=== PATIENT | female | born 1950 | race Caucasian/White ===

== ENCOUNTER 2017-01-05 09:38 | Emergency (ER) | payer MEDICARE ==
[2017-01-05 10:06] LABS: BASOPHILS 0.3 % (0-2); EOSINOPHILS 2.3 % (0-7); HEMOGLOBIN 11.8 g/dL (12-16); IMMATURE GRANULOCYTES 0.2 % (0-5); LYMPHOCYTES 21.7 % (15-50); MCH 25.4 pg (26.0-34.0); MCHC 31.9 g/dL (31.0-37.0); MCV 79.6 fL (80.0-100.0); MEAN PLATELET VOLUME 11.1 fL (7.4-10.4); MONOCYTES 6.8 % (2-11); NEUTROPHILS 68.7 % (40-80); PLATELET COUNT 251 10x3/uL (130-400); RBC 4.65 10x6/uL (4.00-5.40); RDW 16.9 % (11.5-14.5); WBC 8.8 10x3/uL (4.8-10.8)
[2017-01-05 10:48] LABS: ALBUMIN 3.1 g/dL (3.4-5.0); ALKALINE PHOSPHATASE 84 U/L (46-116); ALT (SGPT) 30 U/L (10-68); BILIRUBIN - TOTAL 0.22 mg/dL (0.2-1.3); CALC OSMOLALITY 280 mosm/kg (275-300); CALCIUM 9.1 mg/dL (8.5-10.1); CARBON DIOXIDE 27.8 mmol/L (21.0-32.0); CHLORIDE - SERUM 103 mmol/L (98-107); CREATININE - SERUM 1.1 mg/dL (0.6-1.3); GLUCOSE 83 mg/dL (74-106); POTASSIUM - SERUM 4.1 mmol/L (3.5-5.1); PROTEIN - SERUM 7.5 g/dL (6.4-8.2); SODIUM 137 mmol/L (136-145); UREA NITROGEN 35 mg/dL (7-18); eGFR NON AFRICAN AMERICAN 53 mL/min (90-120)
[2017-01-05 11:01] LABS: CHOL - HDL RATIO 3.8 ratio (2.3-4.1); CHOLESTEROL, TOTAL 175 mg/dL (0-200); CKMB 1.1 U/L (0.0-3.6); CREATINE KINASE 77 UL (21-215); HDL CHOLESTEROL 46 mg/dL (32-96); LDL CHOLESTEROL 96 mg/dL (0-100); LDL-HDL RATIO 2.1 ratio (1.5-3.5); MAGNESIUM - SERUM 1.9 mg/dL (1.8-2.4); PRO BNP 82 pg/mL (0-125); TRIGLYCERIDE 165 mg/dL (30-200)
[2017-01-05 11:19] LABS: TROPONIN-I < 0.017 ng/mL (0.000-0.060)
--- NOTE | 2017-01-08 16:42 | CN ---
PATIENT NAME:GABRIELLE PEARCE MEDICAL RECORD: [id number] : 54 LOCATION:.ER ADMIT DATE: ACCOUNT: [id number] CONSULTING PHYSICIAN: GARCIA GREENBERG MD REFERRING PHYSICIAN: FRANKY CRABTREE MD DATE OF CONSULTATION: 01/05/2017 DIAGNOSES: 1. Chest pain. 2. Hypertension. 3. Hyperlipidemia. 4. Family history of coronary artery disease. HISTORY OF PRESENT ILLNESS: Mrs. Pearce has no previous cardiac history. She had a sudden onset of chest pain while she was driving, like something hit her chest. She then had some dull ache after this along with the headache. She is pain free at this time. Her EKG is normal. Troponin is normal. She does have the risk factors as outlined above. She has not had a risk stratification. PHYSICAL EXAMINATION: GENERAL APPEARANCE: Well-nourished, well-developed, appears stated age. Level of distress, comfortable. PSYCHIATRIC: Mental status, alert, normal affect. Orientation, oriented to time, place and person. EYES: Lids and conjunctiva, noninjected. No discharge, no pallor. ENT: Lips, teeth, gums, normal dentition. Oropharynx, no cyanosis, no pallor. NECK: Carotid arteries, bilateral normal upstroke, no bruits, no thrills. JUGULAR VEINS: No jugular venous pressure or distention. CERVICAL LYMPH NODES: Nontender, nonenlarged. THYROID: Not enlarged. Nontender. No nodules. LUNGS: Respiratory effort, unlabored. CHEST: Normal curvature. No thoracic deformity. No chest wall tenderness. Percussion, resonant. Auscultation, clear. No wheezes, no rales, no rhonchi. CARDIOVASCULAR: Precordial exam, nondisplaced. No heaves or pericardial thrills. Rate and rhythm, regular. Heart sounds, normal S1, normal S2. No S3, no gallop, no rub. Systolic murmur, not heard. Diastolic murmur, not heard. EXTREMITIES: No cyanosis, no edema. Peripheral pulses, full and equal in all extremities, except as noted. No bruits appreciated. ABDOMEN: Soft, nondistended. Normal aorta. No bruit. Nontender. No masses. Liver, nontender, no hepatomegaly. Spleen, nontender, no splenomegaly. MUSCULOSKELETAL: No joint tenderness. No joint swelling. No erythema. NEUROLOGICAL: Normal gait, normal strength, normal tone. SKIN: Warm and dry. REVIEW OF SYSTEMS: The patient reports easy bruising but reports no swollen glands. The patient reports no fever, no night sweats, no significant weight gain, no significant weight loss. No significant exercise tolerance. The patient reports no dry eyes, no irritation, no vision change. Patient reports no difficulty hearing and no ear pain. Patient reports no frequent nose bleeds or nose and sinus problems. Patient reports on arm pain on exertion. No shortness of breath while lying down. No history of heart murmur. Patient reports no cough, no wheezing or coughing up blood. Patient reports no abdominal pain, no vomiting. Normal appetite. No diarrhea and not vomiting blood. No nausea and no constipation. Patient reports no incontinence. No difficulty urinating. No hematuria. No increased frequency. Patient reports CONSULT REPORT [id number] GABRIELLE PEARCE no muscle aches. No weakness, no arthralgias, no back pain. No swelling of the extremities. Patient reports no abnormal mole, no jaundice, no rashes. Reports no loss of consciousness. No weakness and no numbness. No seizures, dizziness, or headaches. The patient reports no depression, no sleep disturbance, feeling safe in a relationship and no alcohol abuse. Patient reports on fatigue. Reports no runny nose or sinus pressure. No itching, no hives, and no frequent sneezing. OVERALL IMPRESSION: Chest pain with some very typical components and many atypical components. We will risk stratify with stress testing Cardiolite imaging as an outpatient. TRANSINT:[id number] Voice Confirmation ID: [id number] DOCUMENT ID: [id number] GARCIA GREENBERG MD at 1642 CC: [id number] DICTATION DATE: 01/05/17 1159 INSTALLER METAL FLOORING: 01/05/17 1306 DEP ER 01/05/17 [facility] [address] [place] [address]
[2017-02-13] MEDS ORDERED: OMEPRAZOLE20 M1 PO (08:10)
[2017-02-13] MEDS ORDERED: PLAVIX75 MG PO (08:10)
[2017-02-13] MEDS ORDERED: NEURONTIN 300300 MG PO (08:10)
[2017-02-13] MEDS ORDERED: ULTRAM50 MG PO (08:11)
[2017-02-13] MEDS ORDERED: NITROQUICK0.4 MG SL (08:11)
[2017-02-13] MEDS ORDERED: HYDROCHLOROTHIA25 MG PO (08:12)
[2017-02-13] MEDS ORDERED: VOLTAREN75 MG PO (08:12)
[2017-02-13] MEDS ORDERED: VASOTEC20 MG PO (08:12)
[2017-02-13] MEDS ORDERED: VITAMIN B COMPL1 TAB PO (08:13)
[2017-02-13] MEDS ORDERED: BAYER CHEWABLE81 MG PO (08:13)
[2017-02-13] MEDS ORDERED: FLINTSTONE1 TAB.CHEW PO (08:13)
[2017-02-13] MEDS ORDERED: FISH OIL 1,2001 CAP PO (08:13)
[2017-02-13 08:19] VITALS: BMI 43.1
== END 2017-01-05 13:32 | disposition home or self-care (01) ==
LOC: D.ER 09:38
PROVIDERS: Emergency Medicine
DX: R07.9 Chest pain, unspecified (principal); I10 Essential (primary) hypertension; D64.9 Anemia, unspecified

== ENCOUNTER → 2017-02-13 07:53 | Outpatient (CLI) | payer MEDICARE ==
[~2017-02-13] VITALS: Ht 160 cm; Wt 110.5 kg
--- NOTE | ~2017-02-13 | HEMODYNAMI ---
PATIENT:GABRIELLE HARRIS MEDICAL RECORD: [id number] : 54 LOCATION:DJavadCAT ADMISSION DATE: 02/13/17 Generatedon:02/13/201710:03 Patient name: GABRIELLE HARRIS Patient #: [id number] SSN: : 1950 Date of study: 02/13/2017 Page: Of Hemodynamic Procedure Report Patient Data Patient Demographics Procedure consent was obtained First Name: GABRIELLE Gender: Female Last Name: STEVEN : 1950 [facility] Initial: TIM Age: 66 year(s) Patient #: [id number] Race: Unknown Additional ID: [id number] Contact details Address: [address] [place] [address] [place] [place] [facility] Zip code: [address] Past Medical History Allergies: No known allergies Admission Admission Data Admission Date: 02/13/2017 Admission Time: 7:53 Procedure Procedure Types Cath Procedure Diagnostic Procedure LHC LHC w/Coronaries PCI Procedure Coronary Stent Coronary Stent Initial Miscellaneous Procedures Moderate Sedation up to 30 minutes Procedure Description Procedure Date Procedure Date: 02/13/2017 Procedure Start Time: 9:47 Procedure End Time: 10:03 Procedure Staff Name Function Rocky Carrillo MD Performing Physician Sylvia Walters RT Monitor Dipika Rodriguez RT Scrub Lionel Lindo RN Nurse Dom Ruiz RN Senior Oracle Database Administrator Procedure Data Cath Procedure Fluoroscopy Diagnostic fluoroscopy Total fluoroscopy Time: 3.1 time: 3.1 min min Diagnostic fluoroscopy Total fluoroscopy dose: 460 dose: 460 mGy mGy Contrast Material Contrast Material Type Amount (ml) Isovue 300 60 Entry Location Entry Primary Successful Side Size Upsize Upsize Entry Closure Li ccessful Closure Location (Fr) 1 (Fr) 2 (Fr) Remarks Device Remarks Radial Right 6 Fr Mechanical artery Short Compression Estimated blood loss: 10 ml Diagnostic catheters Device Type Used For End Catheter Placement DIAGNOSTIC Needham 110cm 5 LV Angiography Fr catheter ([id number]) DIAGNOSTIC [place]ham 110cm 5 Left Coronary Fr catheter ([id number]) Angiography DIAGNOSTIC [place] 110cm 5 Right Coronary Fr catheter (058010) Angiography Procedure Complications No complications Procedure Medications Medication Administration Route Dosage 0.9% NaCl I.V. 100 ml/hr Oxygen NC 2 l/min Heparin Flush Bag added to field 2 bags (1000units/500ml NS) Radial Cocktail added to field 1 syringe (Verapomil 2mg/Nitro 400mcg/Heparin 1500units) Versed I.V. 1 mg Fentanyl I.V. 50 mcg Fentanyl I.V. 25 mcg Radial Cocktail I.A. 1 syringe (Verapomil 2mg/Nitro 400mcg/Heparin 1500units) Versed I.V. 0.5 mg Heparin Bolus I.V. 4000 units Versed I.V. 0.5 mg Fentanyl I.V. 25 mcg Hemodynamics Rest Heart Rate: 75 (bpm) Snapshots Pre Cath Intra NCS Post Cath Vital Signs Time Heart Resp SPO2 etCO2 NIBP (mmHg) Rhythm Pain Sedation Rate (ipm) (%) (mmHg) Status Level (bpm) 9:42:57 76 26 100 0 147/67(115) NSR 0 (11) 10(A) , No pain 9:47:50 75 20 98 40.1 128/59(92) NSR 0 (11) 10(A) , No pain 9:52:43 82 16 96 42.4 106/50(79) NSR 0 (11) 10(A) , No pain 9:57:32 82 19 96 36.3 106/56(87) NSR 0 (11) 10(A) , No pain 10:02:23 83 7 98 42.4 112/53(91) NSR 0 (11) 10(A) , No pain Medications Time Medication Route Dose Verified Delivered Reason Note s Effectiveness by by 9:40:49 0.9% NaCl I.V. 100 Lionel Lionel Per physician ml/hr Belgica Lindo RN RN 9:41:01 Oxygen NC 2 l/min Lionel Lionel Per physician Belgica Lindo RN RN 9:41:17 Heparin Flush added 2 bags Lionel Lionel used for Bag to Belgica Lindo procedure (1000units/500ml field RN RN NS) 9:41:42 Radial Cocktail added 1 Lionel Lionel for (Verapomil to syringe Belgica Plasenciaigan vasodilation 2mg/Nitro field RN RN 400mcg/Heparin 1500units) 9:46:43 Versed I.V. 1 mg Lionel Lionel for sedation Belgica Lindo RN RN 9:46:54 Fentanyl I.V. 50 mcg Lionel Lionel for sedation Belgica Lindo RN RN 9:49:37 Fentanyl I.V. 25 mcg Lionel Lionel for sedation Belgica Lindo RN RN 9:49:49 Radial Cocktail I.A. 1 Lionel Rocky for (Verapomil syringe Belgica thornton 2mg/Nitro RN 400mcg/Heparin 1500units) 9:50:02 Versed I.V. 0.5 mg Lionel Lionel for sedation Belgica Lindo RN RN 9:53:45 Heparin Bolus I.V. 4000 Lionel Lionel for units Belgica Lindo anticoagulation RN RN 10:00:38 Versed I.V. 0.5 mg Lionel Lionel for sedation Belgica Lindo RN RN 10:00:44 Fentanyl I.V. 25 mcg Lionel Lionel for sedation Belgica Lindo RN division chief Log Time Note 9:28:33 Dom Ruiz RN sent for patient. Start room use. 9:28:34 Time tracking: Regular hours 9:28:40 Plan of Care:Hemodynamics will remain stable., Cardiac rhythm will remain stable., Comfort level will be maintained., Respiratory function will remain adequate., Patient/ family verbilizes understanding of procedure., Procedure tolerated without complication., Recovers from procedure without complications.. 9:30:20 Patient received from Pre/Post Procedure Room to CCL 1 Alert and oriented. Tansferred to table in Supine position. 9:30:21 Warm blankets applied, and suman hugger turned on for patient comfort. 9:30:22 Correct patient and procedure confirmed by team. 9:30:23 Signed procedure consent form obtained from patient. 9:30:24 ECG and BP/O2 sat monitors applied to patient. 9:30:26 Full Disclosure recording started 9:40:49 0.9% NaCl 100 ml/hr I.V. was administered by Lionel Lindo RN; Per physician; 9:41:01 Oxygen 2 l/min NC was administered by Lionel Lindo RN; Per physician; 9:41:17 Heparin Flush Bag (1000units/500ml NS) 2 bags added to field was administered by Lionel Lindo RN; used for procedure; 9:41:42 Radial Cocktail (Verapomil 2mg/Nitro 400mcg/Heparin 1500units) 1 syringe added to field was administered by Lionel Lindo RN; for vasodilation; 9:41:46 Vital chart was started 9:42:30 Rhythm: sinus rhythm 9:42:40 H&P Date Dictated: 02/13/2017 Within 30 days and on chart., New H&P dictated by physician.. 9:42:48 Pre-procedure instructions explained to patient. 9:42:48 Pre-op teaching completed and patient verbalized understanding. 9:42:49 Family in waiting room. 9:42:53 Patient NPO since Midnight. 9:43:00 Patient allergic to No known allergies 9:43:02 Is the patient allergic to Iodine/contrast media? No. 9:43:06 Is patient on blood thinner?Yes 9:43:09 ACC The patient was administered the following blood thiners within the last 24 hours: ACCAspirin, ACCPlavix 9:43:11 Patient diabetic? No. 9:43:14 Previous problem with sedation/anesthesia? No ? 9:43:15 Snore? Yes 9:43:16 Sleep apnea? No 9:43:18 Deviated septum? No 9:43:18 Opens mouth fully? Yes 9:43:19 Sticks out tongue? Yes 9:43:21 Airway obstruction? No ? 9:43:23 Dentures? No ? 9:43:25 Pre procedure: right dorsailis pedis pulse 2+ Normal; easily identifiable; not easily obliterated 9:43:28 Modified Jorge's test Ulnar < 7 seconds 9:43:30 Patient pain scale 0/10 ?. 9:43:33 IV patent on arrival in left hand with 0.9% NaCl at O. 9:43:36 Lab results completed and on chart. 9:43:39 Right Radial & Right Groin area was prepped with chlora-prep and draped in sterile fashion 9:43:40 Alarms reviewed by R. N. 9:43:40 Sharps counted by scrub and verified by R.N. 9:43:41 Final Timeout: patient, procedure, and site verified with staff and physician. All members of the team are in agreement. 9:43:45 Right Radial site verified by team. 9:43:48 Physical assessment completed. ASA score P 2 - A patient with mild systemic disease as per Rocky Carrillo MD. 9:43:53 Sedation plan: IV Moderate Sedation Medication:Versed, Fentanyl 9:43:58 Use device set Radial Dx 9:43:59 ACIST Syringe (05370) opened to sterile field. 9:44:00 Medline Cath Pack ([id number]) opened to sterile field. 9:44:00 Bag Decanter (2002S) opened to sterile field. 9:44:01 SHEATH 6FR Slender ([id number]) opened to sterile field. 9:44:01 DIAGNOSTIC WIRE .035 260cm J wire (230074) opened to sterile field. 9:44:02 ACIST Hand Control (91703) opened to sterile field. 9:44:03 ACIST Manifold (74724) opened to sterile field. 9:44:04 Tegaderm 4 x 4 (1626W) opened to sterile field. 9:44:05 MBrace Wrist Support ([id number]) opened to sterile field. 9:46:14 Zero performed for pressure channel P1 9:46:17 Zero performed for pressure channel P1 9:46:20 Zero performed for pressure channel P1 9:46:23 Zero performed for pressure channel P1 9:46:26 Zero performed for pressure channel P1 9:46:43 Versed 1 mg I.V. was administered by Lionel Lindo RN; for sedation; 9:46:54 Fentanyl 50 mcg I.V. was administered by Lionel Lindo RN; for sedation; 9:46:57 Zero performed for pressure channel P1 9:47:04 Procedure started. 9:47:08 Local anesthetic to right radial artery with Lidocaine 2% by Rocky Carrillo MD.INITIAL ACCESS ONLY 9:47:33 A 6 Fr Short sheath was inserted into the Right Radial artery 9:47:35 Baseline sample Acquired. 9:49:37 Fentanyl 25 mcg I.V. was administered by Lionel Lindo RN; for sedation; 9:49:49 Radial Cocktail (Verapomil 2mg/Nitro 400mcg/Heparin 1500units) 1 syringe I.A. was administered by Rocky Carrillo MD; for vasodilation; 9:50:02 Versed 0.5 mg I.V. was administered by Lionel Lindo RN; for sedation; 9:50:13 A DIAGNOSTIC Needham 110cm 5 Fr catheter (065000) was advanced over the wire and used for LV Angiography. 9:50:15 LV gram done using GUTIERREZ 9:50:22 EF : 55 % 9:50:24 Injector settings: Ml/sec: 5, Volume: 15, 9:50:32 A DIAGNOSTIC [place]ham 110cm 5 Fr catheter (773952) was advanced over the wire and used for Left Coronary Angiography. 9:50:39 Use device set TAU PCI 9:50:42 INFLATOR Merit BasixCompak (AW8100) opened to sterile field. 9:51:09 A DIAGNOSTIC [place]ham 110cm 5 Fr catheter (283072) was advanced over the wire and used for Right Coronary Angiography. 9:51:15 Catheter removed. 9:51:18 GUIDE 6FR XBLAD 3.5 catheter ([id number]) opened to sterile field. 9:51:23 CHOICE PT Extra Support 182cm wire ([id number]) opened to sterile field. 9:52:56 CHOICE PT Extra Support 182cm wire ([id number]) opened to sterile field. 9:53:44 6 Fr XBLAD 3.5 guide catheter was inserted over the wire 9:53:45 Heparin Bolus 4000 units I.V. was administered by Lionel Lindo RN; for anticoagulation; 9:53:49 Choice PT ES wire advanced. 9:56:11 Inflation Number: 1 A INTEGRITY RX 3.0 x 15 stent ([id number]) was prepped and advanced across the Mid LAD. The stent was deployed at 17 DELL for 0:08 (min:sec). 9:56:26 Stent catheter was removed intact over wire. 9:58:36 Inflation Number: 2 A INTEGRITY RX 3.5 x 18 stent ([id number]) was prepped and advanced across the Mid LAD. The stent was deployed at 15 DELL for 0:08 (min:sec). 9:58:43 Stent catheter was removed intact over wire. 9:58:59 Wire removed. 9:59:00 Guide catheter removed. 9:59:19 Sheath removed intact; hemostasis achieved with Mechanical Compression to the Right Radial artery. 9:59:22 Procedure ended.(Physican Out) 9:59:31 Fluoroscopy time 03.10 minutes. 9:59:37 Fluoroscopy dose: 460 mGy 9:59:37 Flurop Dose total: 460 9:59:41 Contrast amount:Isovue 300 60ml. 9:59:42 TR BAND Large ([id number]) opened to sterile field. 9:59:45 Sharps counted by scrub and verified by R.N. 9:59:48 TR band inflated with 12cc of air. 9:59:49 Insertion/operative site no bleeding no hematoma. 10:00:00 Post right radial artery:stable, soft, clean and dry 10:00:02 Post Procedure Pulses reassessed and unchanged 10:00:04 Post-procedure physical assessment completed. ASA score P 2 - A patient with mild systemic disease as per Rocky Carrillo MD. 10:00:06 Post procedure rhythm: unchanged. 10:00:09 Estimated blood loss: 10 ml 10:00:10 Post procedure instruction explained to patient.Patient verbalizes understanding. 10:00:10 Patient needs reinforcement of post procedure teaching. 10:00:25 Procedure type changed to Cath procedure, Diagnostic procedure, LHC, LHC w/Coronaries, PCI procedure, Coronary Stent, Coronary Stent Initial, Miscellaneous Procedures, Moderate Sedation up to 30 minutes 10:00:30 Procedure Complication : No complications 10:00:33 See physician's report for complete and final results. 10:00:38 Versed 0.5 mg I.V. was administered by Lionel Lindo RN; for sedation; 10:00:44 Fentanyl 25 mcg I.V. was administered by Lionel Lindo RN; for sedation; 10:03:10 Procedure and supply charges have been captured, reviewed, submitted and are correct. 10:03:10 Vital chart was stopped 10:03:12 Report given to Pre/Post Procedure Room. 10:03:15 Patient transfered to Pre/Post Procedure Room with Stretcher. 10:03:17 Procedure ended. 10:03:17 Full Disclosure recording stopped ::25 End room use (Document Last) Intervention Summary Intervention Notes Time ActionType Lesion and Equipment Action# Pressure Duration Attributes Used 9:56:11 Place stent Mid LAD INTEGRITY RX 1 17 00:08 3.0 x 15 stent ([id number]) 9:58:36 Place stent Mid LAD INTEGRITY RX 2 15 00:08 3.5 x 18 stent ([id number]) Device Usage Item Name Manufacture Quantity Catalog Number Hospital Part Current Mini mal Lot# / Charge Number Stock Stock Serial# Code ACIST Acist 1 28204 026076 316423 [id number] 20 Syringe Medical (81168) Systems Inc Medline Cath Cardinal 1 [id number] 254177 70966 943114 5 Pack Health ([id number]) Bag Decanter Microtek 1 2001S 714342 75755 540151 5 (2001S) Medical Inc. SHEATH 6FR Terumo 1 [id number] 842740 466250 626652 40 Slender ([id number]) DIAGNOSTIC [facility] 1 092344 515920 495159 949963 30 WIRE .035 260cm J wire (618176) ACIST Hand Acist 1 40991 623421 568394 969349 5 Control Medical (95626) Systems Inc ACIST Acist 1 49976 025882 317858 016829 5 Manifold Medical (94209) Systems Inc Tegaderm 4 x 3M 1 1626W 747028 269807 693074 5 4 (1626W) MBrace Wrist Advanced 1 140-0250-00 487761 05045 522107 5 Support Vascular ([id number]) Dynamics DIAGNOSTIC Terumo 1 40-5013 071252 192650 159543 5 Needham 110cm 5 Fr catheter (573354) INFLATOR [facility] 1 PH2535 021679 965059 967614 15 [facility] Medical BasixCompak (KX0099) GUIDE 6FR Cardinal 1 [id number] 732835 793032 070999 10 XBLAD 3.5 Health catheter (36586798) CHOICE PT [place] 2 [id number] 458997 866142 011388 5 Extra Scientific Support 182cm wire (9242769T2) INTEGRITY RX Medtronic 1 [id number] 492190 634825 237097 5 [id number] 3.0 x 15 stent ([id number]) INTEGRITY RX Medtronic 1 [id number] 655682 178421 497452 5 [id number] 3.5 x 18 stent ([id number]) TR BAND Terumo 1 [id number] 779013 498171 523613 40 Large ([id number]) Signature Audit [place] Stage Time Signature Unsigned Intra-Procedure 02/13/2017 Sylvia 10:03:33 AM Counts RT(R) Signatures Monitor : Sylvia Signature : Counts RT Date : Time : [address] [place] [address]
[~2017-02-13 07:53] MED LIST: BAYER CHEWABLE81 MG PO; FISH OIL 1,2001 CAP PO; FLINTSTONE1 TAB.CHEW PO; HYDROCHLOROTHIA25 MG PO; NEURONTIN 300300 MG PO; NITROQUICK0.4 MG SL; OMEPRAZOLE20 M1 PO; PLAVIX75 MG PO; ULTRAM50 MG PO; VASOTEC20 MG PO; VITAMIN B COMPL1 TAB PO; VOLTAREN75 MG PO
[2017-02-13 08:19] VITALS: BP 153/72; Ht 160 cm; Wt 110.5 kg
[2017-02-13 08:52] LABS: BASOPHILS 0.3 % (0-2); EOSINOPHILS 2.7 % (0-7); HEMATOCRIT 36.4 % (36.0-48.0); HEMOGLOBIN 11.6 g/dL (12-16); IMMATURE GRANULOCYTES 0.3 % (0-5); LYMPHOCYTES 29.4 % (15-50); MCH 25.2 pg (26.0-34.0); MCHC 31.9 g/dL (31.0-37.0); MCV 79.1 fL (80.0-100.0); MEAN PLATELET VOLUME 11.1 fL (7.4-10.4); MONOCYTES 6.6 % (2-11); NEUTROPHILS 60.7 % (40-80); PLATELET COUNT 253 10x3/uL (130-400); RDW 16.6 % (11.5-14.5); WBC 9.7 10x3/uL (4.8-10.8)
[2017-02-13 09:00] LABS: ANION GAP 12.1 mmol/L (8-16); CALCIUM 8.9 mg/dL (8.5-10.1); POTASSIUM - SERUM 4.1 mmol/L (3.5-5.1)
--- NOTE | 2017-02-13 10:33 | NUR ---
1030 HOB ELEVATED TO 30DEGREES, 2L NC REMOVED NOW THAT AWAKE. 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 NO C/O CHEST PAIN. PULSES PALP X 4. R WRIST TR BAND C/D/I W NO HEMATOMA OR BLEEDING.
--- NOTE | 2017-02-13 10:50 | NUR ---
HOB ELEVATED. EATING TURKEY SANDWICH AND SIPPING WATER WITH NO C/O NAUSEA. AT SIDE. R WRIST C/D/I.
--- NOTE | 2017-02-13 12:00 | NUR ---
SITTING WITH HOB UP 30 DEGREES TALKING TO FAMILY AT BEDSIDE. VSS WITH NO DISTRESS NOTED. TR BAND TO R/WRIST CDI NO BLEEDING NO HEMATOMA NOTED
--- NOTE | 2017-02-13 12:38 | NUR ---
VOICED NO NEEDS AT THIS TIME TR BAND TO R/WRIST CDI VSS AND FAMILY AT SIDE
--- NOTE | 2017-02-13 13:12 | NUR ---
2 CC AIR REMOVED FROM TR BAND WITH NO BLEEDING NO HEMATOMA NOTED
--- NOTE | 2017-02-13 13:35 | NUR ---
4 CC AIR REMOVED FROM TR BAND WITH NO BLEEDING NO HEMATOMA NOTED. PIV REMOVED WITH DRESSING APPLIED.
--- NOTE | 2017-02-13 13:57 | NUR ---
TR BAND REMOVED WITH DRESSING APPLIED. VERBAL AND WRITTEN DISCHARGE GONE OVER WITH PATIENT AND FAMILY. VSS WITH CHEST PAIN DENIED NO DISTRESS OR COMPLAINTS PATIENT LEFT VIA WC TO PARKING FOR TRANSPORT HOME
--- NOTE | 2017-02-19 12:15 | OP ---
PATIENT NAME: GABRIELLE HARRIS MEDICAL RECORD: [id number] :54 LOCATION:D.CAT ADMISSION DATE: SURGEON: GARCIA GREENBERG MD DATE OF OPERATION: 02/13/2017 PROCEDURES: 1. PTCA stent LAD. 2. Left heart catheterization. 3. Selective coronary angiography. 4. Left ventriculogram. INDICATION: Angina and coronary artery disease. PROCEDURE IN DETAIL: After informed consent was obtained and after a detailed explanation of the risks, benefits as well as alternative therapies, the patient elected to proceed with angiogram and angioplasty. The right radial area was prepped and draped in normal sterile fashion. The right radial artery was cannulated via modified Seldinger technique with placement of 6-[place]agu[place] sheath. All catheters exchanged through this sheath. FINDINGS: Left ventriculogram was performed in the standard 30-degree GUTIERREZ view reveals good cardiac wall motion throughout all segments. Overall ejection fraction estimated at 55%. SELECTIVE CORONARY ANGIOGRAPHY: 1. Left main has no significant angiographic disease. 2. Left anterior descending has 2 areas greater than 70% stenosis, correlates with the perfusion defect on nuclear stress test. 3. Left circumflex shows moderate irregularities, but no flow-limiting stenosis. 4. Right coronary artery has moderate irregularities, but no flow-limiting stenosis. PTCA STENT OF THE LAD: The stents used were a 3.0 x 15 and a 3.5 x 18 both Integrity stents. Result was 0% residual stenosis. OVERALL IMPRESSION: Successful percutaneous transluminal coronary angioplasty stent of the left anterior descending going from greater than 70% initial stenosis to 0% residual stenosis. TRANSINT:[id number] Voice Confirmation ID: [id number] DOCUMENT ID: [id number] GARCIA GREENBERG MD at 1215 CC: [id number] DICTATION DATE: 02/13/17 1007 [place]: 02/13/17 1301 DEP CLI 02/13/17 [place] [id number]
--- NOTE | 2017-02-19 12:15 | HP ---
PATIENT: GABRIELLE PEARCE MEDICAL RECORD: [id number] ACCOUNT: [id number] LOCATION:[facility] : 54 ADMISSION DATE: 02/13/17 HISTORY AND PHYSICAL EXAMINATION ADMITTING DIAGNOSES: 1. Angina. 2. Hypertension. 3. Hyperlipidemia. 4. Abnormal nuclear stress test. HISTORY OF PRESENT ILLNESS: Ms. Pearce presents with anginal symptomatology, found to have an abnormal nuclear stress test suggestive of multivessel disease, now brought for cardiac catheterization. PHYSICAL EXAMINATION: GENERAL APPEARANCE: Well-nourished, well-developed, appears stated age. Level of distress, comfortable. PSYCHIATRIC: Mental status, alert, normal affect. Orientation, oriented to time, place and person. EYES: Lids and conjunctiva, noninjected. No discharge, no pallor. ENT: Lips, teeth, gums, normal dentition. Oropharynx, no cyanosis, no pallor. NECK: Carotid arteries, bilateral normal upstroke, no bruits, no thrills. JUGULAR VEINS: No jugular venous pressure or distention. CERVICAL LYMPH NODES: Nontender, nonenlarged. THYROID: Not enlarged. Nontender. No nodules. LUNGS: Respiratory effort, unlabored. CHEST: Normal curvature. No thoracic deformity. No chest wall tenderness. Percussion, resonant. Auscultation, clear. No wheezes, no rales, no rhonchi. CARDIOVASCULAR: Precordial exam, nondisplaced. No heaves or pericardial thrills. Rate and rhythm, regular. Heart sounds, normal S1, normal S2. No S3, no gallop, no rub. Systolic murmur, not heard. Diastolic murmur, not heard. EXTREMITIES: No cyanosis, no edema. Peripheral pulses, full and equal in all extremities, except as noted. No bruits appreciated. ABDOMEN: Soft, nondistended. Normal aorta. No bruit. Nontender. No masses. Liver, nontender, no hepatomegaly. Spleen, nontender, no splenomegaly. MUSCULOSKELETAL: No joint tenderness. No joint swelling. No erythema. NEUROLOGICAL: Normal gait, normal strength, normal tone. SKIN: Warm and dry. REVIEW OF SYSTEMS: The patient reports easy bruising but reports no swollen glands. The patient reports no fever, no night sweats, no significant weight gain, no significant weight loss. No significant exercise tolerance. The patient reports no dry eyes, no irritation, no vision change. Patient reports no difficulty hearing and no ear pain. Patient reports no frequent nose bleeds or nose and sinus problems. Patient reports on arm pain on exertion. No shortness of breath while lying down. No history of heart murmur. Patient reports no cough, no wheezing or coughing up blood. Patient reports no abdominal pain, no vomiting. Normal appetite. No diarrhea and not vomiting blood. No nausea and no constipation. Patient reports no incontinence. No difficulty urinating. No hematuria. No increased frequency. Patient reports no muscle aches. No weakness, no arthralgias, no back pain. No swelling of the extremities. Patient reports no abnormal mole, no jaundice, no rashes. Reports no loss of consciousness. No weakness and no numbness. No seizures, dizziness, or headaches. The patient reports no depression, no sleep disturbance, feeling HISTORY AND PHYSICAL [id number] GABRIELLE PEARCE safe in a relationship and no alcohol abuse. Patient reports on fatigue. Reports no runny nose or sinus pressure. No itching, no hives, and no frequent sneezing. OVERALL IMPRESSION: Chest pain compatible with angina with markedly abnormal nuclear stress test. We will proceed with coronary angiography. Further care depends upon the findings of the angiography. TRANSINT:[id number] Voice Confirmation ID: [id number] DOCUMENT ID: [id number] GARCIA GREENBERG MD at 1215 CC: [id number] DICTATION DATE: 02/13/17916 RECYCLING OPERATOR: 02/13/17 1037 [facility] CLI 02/13/17 [place] [id number] [place] [id number]
== END | disposition home or self-care (01) ==
LOC: D.CATH 02-06 10:00
PROVIDERS: Internal Medicine Interventional Cardiology
DX: I20.9 Angina pectoris, unspecified (principal); E78.5 Hyperlipidemia, unspecified; I10 Essential (primary) hypertension; R94.30 Abnormal result of cardiovascular function study, unspecified; Z01.812 Encounter for preprocedural laboratory examination